=== PATIENT | female | born 2000 | race Caucasian/White ===

== ENCOUNTER 2019-03-13 19:01 | Emergency (ER) | payer BC, OTHER ==
[~2019-03-13] VITALS: Ht 162.6 cm; Wt 72.6 kg
[2019-03-13] MEDS ORDERED: AMITRIPTYLINE H25 M3 PO (19:22)
[2019-03-13] MEDS ORDERED: IMITREX 25 MG T25 M1 PO (19:24)
[2019-03-13 20:37] VITALS: BP 109/59
[2019-03-13] MEDS ORDERED: BUTALB-APAP-CA1 EACH PO (20:51)
== END 2019-03-13 21:18 | disposition home or self-care (01) ==
LOC: ER 19:01
DX: G43.909 Migraine, unspecified, not intractable, without status migrainosus (principal); M54.2 Cervicalgia; Z88.8 Allergy status to other drugs, medicaments and biological substances